=== PATIENT | male | born 1965 | race Caucasian/White ===

== ENCOUNTER 2024-11-12 00:51 | Emergency (ER) | payer BC ==
[~2024-11-12] VITALS: Ht 182.9 cm; Wt 120.0 kg
[2024-11-12 00:55] VITALS: TEMP 98.6
[2024-11-12] MEDS: LIDOcaine/epinephrine/tetracaine TOPICAL sol 3 ML syringe TOP ONE (02:06)
[2024-11-12] MEDS: acetaminophen 1,000mg/100ml IV 100 ML IV ONE (02:22)
[2024-11-12] MEDS ORDERED: ASPI-1265 PO (02:24)
[2024-11-12 03:03] VITALS: BP 120/70; PULSE 77; RESP 12; O2SAT 94
== END 2024-11-12 03:07 | disposition hospice, inpatient (51) ==
LOC: ER 00:52
DX: S06.5XAA Traumatic subdural hemorrhage with loss of consciousness status unknown, initial encounter (principal); S00.81XA Abrasion of other part of head, initial encounter; Z79.82 Long term (current) use of aspirin; Y04.8XXA Assault by other bodily force, initial encounter; Y93.89 Activity, other specified; Y92.89 Other specified places as the place of occurrence of the external cause; Y99.8 Other external cause status
CPT/HCPCS: 96365; 99291; J0131; J3490